=== PATIENT | female | born 1945 | race Caucasian/White ===

== ENCOUNTER → 2017-03-27 | Outpatient (CLI) | payer MEDICARE | END | disposition home or self-care (01) | LOC: CFH 10:15 | PROVIDERS: ATTEND Obstetrics & Gynecology | DX: Z12.31 Encounter for screening mammogram for malignant neoplasm of breast (principal); M85.88 Other specified disorders of bone density and structure, other site; Z78.0 Asymptomatic menopausal state | CPT/HCPCS: 77080; G0202 ==

== ENCOUNTER → 2017-12-31 | Outpatient (CLI) | payer MEDICARE | END | disposition home or self-care (01) | LOC: CVU 12:46 | PROVIDERS: ATTEND Internal Medicine Cardiovascular Disease | DX: I34.0 Nonrheumatic mitral (valve) insufficiency (principal); I34.1 Nonrheumatic mitral (valve) prolapse; I10 Essential (primary) hypertension; E78.5 Hyperlipidemia, unspecified | CPT/HCPCS: 93306 ==

== ENCOUNTER → 2018-08-04 | Outpatient (CLI) | payer MEDICARE | END | disposition home or self-care (01) | LOC: CVU 12:56 | PROVIDERS: ATTEND Internal Medicine Cardiovascular Disease | DX: I65.23 Occlusion and stenosis of bilateral carotid arteries (principal); C50.919 Malignant neoplasm of unspecified site of unspecified female breast | CPT/HCPCS: 93880 ==

== ENCOUNTER 2018-09-03 11:43 | Observation (INO) | payer MEDICARE ==
[~2018-09-03] VITALS: Ht 170.2 cm; Wt 68.4 kg
[2018-09-03] MEDS: FENTANYL PF 100 MCG/2ML IV PRN ×4 (10:32→11:00)
[~2018-09-03 11:43] MED LIST: ACETAMINOPHEN 500 MG TABLET PO ONE; ATOR20TA37 PO; BACITRACIN 50,000 UNIT ONE; BUPIVACAINE/PF-EPI 0.5% 1:200K ONE; CEFAZOLIN 1,000 MG ONE; COLE1TAB5 PO; DEXAMETHASONE 4 MG/ML, 1ML ONE; DIPHENHYDRAMINE 50 MG/ML, 1ML IVPush PRN; FENTANYL PF 100 MCG/2ML ONE; FENTANYL PF 250 MCG/5ML ONE; GABAPENTIN 300 MG CAPSULE PO ONE; GENTAMICIN 80 MG/2 ML IM ONE; GLYCOPYRROLATE 0.2MG/1ML, 5ML ONE; HALOPERIDOL 5 MG/ML IV PRN; HYDROmorphone 2 MG/ML, 1ML IVPush PRN; ISOSULFAN BLUE 10 MG/ML, 5ML IV ONE; LABETALOL 5MG/ML, 20ML IV PRN; LACTATED RINGERS 1,000 ML IV SCH; LEVO112T4 PO; MEPERIDINE/PF 25MG/0.5ML IVPush PRN; METOPROLOL 1 MG/ML, 5ML IV PRN; NEOSTIGMINE 1 MG/ML, 10ML ONE; ONDANSETRON 2MG/ML, 2ML ONE; OXYcodone 5 MG/5 ML ORAL.SOL UDC ONE; OXYcodone 5 MG/5 ML ORAL.SOL UDC PO PRN; PROCHLORPERAZINE 5 MG/ML, 2ML IV PRN; PROMETHAZINE 25 MG/ML, 1ML IV PRN; PROPOFOL 10 MG/ML, 20ML ONE; ROCURONIUM 10 MG/ML,10ML ONE; SUCCINYLCHOLINE 20 MG/ML, 10ML ONE; hydrALAzine 20 MG/ML, 1ML IV PRN
[2018-09-03 11:53] VITALS: BP 126/49
[2018-09-03] MEDS ORDERED: ONDANSETRON 2MG/ML, 2ML IVPush PRN ×2 (13:00)
[2018-09-03] MEDS ORDERED: HYDROcodone/APAP 5/325 TABLET PO PRN (13:00)
[2018-09-03] MEDS ORDERED: morphine SULFATE/PF 0.5 MG/ML, 10ML IV PRN (13:00)
[2018-09-03] MEDS ORDERED: morphine SULFATE 10 MG/ML, 1ML IVPush PRN (13:00)
[2018-09-03] MEDS ORDERED: LABETALOL 5MG/ML, 20ML IVPush PRN ×2 (13:00)
[2018-09-03] MEDS: LACTATED RINGERS 1,000 ML IV SCH ×2 (13:03→21:00)
[2018-09-03 14:40] VITALS: BP 125/49
[2018-09-03] MEDS: CEFAZOLIN PMX 2GM/50ML 50 ML IVPB SCH ×2 (15:48→23:34)
[2018-09-03] MEDS: HYDROcodone/APAP 5/325 TABLET PO PRN ×2 (16:45→23:52)
[2018-09-03 19:23] VITALS: BP 113/64
[2018-09-03] MEDS: COLESTIPOL 1 GM TABLET PO SCH (19:55)
[2018-09-03] MEDS: FAMOTIDINE 20 MG TABLET PO SCH (19:55)
[2018-09-03] MEDS ORDERED: ATORVASTATIN 20 MG TABLET PO SCH (21:00)
[2018-09-03] MEDS ORDERED: FAMOTIDINE 20 MG TABLET PO SCH (21:00)
[2018-09-04 00:10] VITALS: BP 121/69
[2018-09-04 01:16] VITALS: BP 114/42
[2018-09-04] MEDS: LACTATED RINGERS 1,000 ML IV SCH (05:00)
[2018-09-04] MEDS ORDERED: LEVOTHYROXINE 112 MCG TABLET PO SCH (06:00)
[2018-09-04] MEDS: CEFAZOLIN PMX 2GM/50ML 50 ML IVPB SCH (07:53)
[2018-09-04] MEDS: FAMOTIDINE 20 MG TABLET PO SCH (07:53)
[2018-09-04] MEDS: COLESTIPOL 1 GM TABLET PO SCH (07:53)
[2018-09-04 08:00] VITALS: BP 112/52
== END 2018-09-04 13:10 | disposition home or self-care (01) ==
LOC: OUT 11:43 → 4NOR 11:44 → DCLOUNGE 09-04 12:47
PROVIDERS: ADMIT Surgery; ATTEND Surgery
DX: D05.11 Intraductal carcinoma in situ of right breast (principal); M19.90 Unspecified osteoarthritis, unspecified site; G43.909 Migraine, unspecified, not intractable, without status migrainosus; I65.23 Occlusion and stenosis of bilateral carotid arteries; Z85.3 Personal history of malignant neoplasm of breast; Z90.11 Acquired absence of right breast and nipple; Z90.12 Acquired absence of left breast and nipple
CPT/HCPCS: 19303; 38525; 38792; 88307; 88333; 88341; 88342; 88360; 88361; 96365; 96366; C1729; C1762; G0378; J0330; J0690; J1100; J1580; J2405; J2704; J2710; J3010; J3490; J7120

== ENCOUNTER → 2018-10-08 | Outpatient (CLI) | payer MEDICARE ==
[~2018-10-08] MED LIST changes: -ACETAMINOPHEN 500 MG TABLET PO ONE; -BACITRACIN 50,000 UNIT ONE; -BUPIVACAINE/PF-EPI 0.5% 1:200K ONE; -CEFAZOLIN 1,000 MG ONE; -DEXAMETHASONE 4 MG/ML, 1ML ONE; -DIPHENHYDRAMINE 50 MG/ML, 1ML IVPush PRN; -FENTANYL PF 100 MCG/2ML ONE; -FENTANYL PF 250 MCG/5ML ONE; -GABAPENTIN 300 MG CAPSULE PO ONE; -GENTAMICIN 80 MG/2 ML IM ONE; -GLYCOPYRROLATE 0.2MG/1ML, 5ML ONE; -HALOPERIDOL 5 MG/ML IV PRN; -HYDROmorphone 2 MG/ML, 1ML IVPush PRN; -ISOSULFAN BLUE 10 MG/ML, 5ML IV ONE; -LABETALOL 5MG/ML, 20ML IV PRN; -LACTATED RINGERS 1,000 ML IV SCH; -MEPERIDINE/PF 25MG/0.5ML IVPush PRN; -METOPROLOL 1 MG/ML, 5ML IV PRN; -NEOSTIGMINE 1 MG/ML, 10ML ONE; +OMNIPAQUE 350 MG/ML, 100ML BOTTLE ONE; -ONDANSETRON 2MG/ML, 2ML ONE; -OXYcodone 5 MG/5 ML ORAL.SOL UDC ONE; -OXYcodone 5 MG/5 ML ORAL.SOL UDC PO PRN; -PROCHLORPERAZINE 5 MG/ML, 2ML IV PRN; -PROMETHAZINE 25 MG/ML, 1ML IV PRN; -PROPOFOL 10 MG/ML, 20ML ONE; -ROCURONIUM 10 MG/ML,10ML ONE; -SUCCINYLCHOLINE 20 MG/ML, 10ML ONE; -hydrALAzine 20 MG/ML, 1ML IV PRN
== END | disposition home or self-care (01) ==
LOC: PETCFH 10:28
PROVIDERS: ATTEND Internal Medicine Hematology & Oncology
DX: Z51.11 Encounter for antineoplastic chemotherapy (principal); C50.111 Malignant neoplasm of central portion of right female breast; M48.56XA Collapsed vertebra, not elsewhere classified, lumbar region, initial encounter for fracture; Z90.710 Acquired absence of both cervix and uterus
CPT/HCPCS: 71260; 74177; 78306; A9503; Q9967

== ENCOUNTER 2019-01-28 13:31 | Day surgery (SDC) | payer MEDICARE ==
[~2019-01-28] VITALS: Ht 170.2 cm; Wt 69.1 kg
[~2019-01-28 13:31] MED LIST changes: +ACET-1600 PO; +BACITRACIN 50,000 UNIT ONE; +BUPIVACAINE/PF-EPI 0.5% 1:200K ONE; +CALC1CAP8 PO; +CEFAZOLIN 1,000 MG ONE; +EPINEPHRINE 1 MG/ML, 1ML ONE; +GENTAMICIN 80 MG/2 ML ONE; +IBUP-1484 PO; +LACT1CAP43 PO; +LIDOCAINE-MPF 2% ,5ML ONE; -OMNIPAQUE 350 MG/ML, 100ML BOTTLE ONE; +SODIUM BICARBONATE 1 MEQ/ML, 50ML VIAL ONE
[2019-01-28 14:16] VITALS: BP 155/88
[2019-01-28] MEDS ORDERED: LACTATED RINGERS 1,000 ML IV SCH (14:20)
[2019-01-28] MEDS ORDERED: FENTANYL PF 250 MCG/5ML ONE (15:36)
[2019-01-28] MEDS ORDERED: MIDAZOLAM 1 MG/ML, 2ML ONE (15:36)
[2019-01-28] MEDS ORDERED: hydrALAzine 20 MG/ML, 1ML IV PRN (16:30)
[2019-01-28] MEDS ORDERED: HYDROmorphone 2 MG/ML, 1ML IVPush PRN (16:30)
[2019-01-28] MEDS ORDERED: ACETAMINOPHEN 325 MG TABLET PO PRN (16:30)
[2019-01-28] MEDS ORDERED: KETOROLAC 30 MG/1 ML IV PRN (16:30)
[2019-01-28] MEDS ORDERED: LABETALOL 5MG/ML, 20ML IV PRN (16:30)
[2019-01-28] MEDS ORDERED: ALBUTEROL SULFATE 2.5 MG/3 ML NPPB PRN (16:30)
[2019-01-28] MEDS ORDERED: MEPERIDINE/PF 25MG/0.5ML IVPush PRN (16:30)
[2019-01-28] MEDS ORDERED: DIAZEPAM 5 MG/ML, 2ML IVPush PRN (16:30)
[2019-01-28] MEDS ORDERED: PROMETHAZINE 25 MG/ML, 1ML IV PRN (16:30)
[2019-01-28] MEDS ORDERED: FENTANYL PF 100 MCG/2ML IV PRN (16:30)
[2019-01-28] MEDS ORDERED: PROPOFOL 10 MG/ML, 20ML ONE (16:44)
[2019-01-28] MEDS ORDERED: ONDANSETRON 2MG/ML, 2ML ONE (16:44)
[2019-01-28] MEDS ORDERED: CEFAZOLIN 1,000 MG ONE (16:44)
[2019-01-28] MEDS ORDERED: DEXAMETHASONE 4 MG/ML, 1ML ONE (16:44)
[2019-01-28] MEDS ORDERED: OXYcodone 5 MG/5 ML ORAL.SOL UDC ONE (17:02)
[2019-01-28] MEDS ORDERED: FENTANYL PF 100 MCG/2ML ONE (17:02)
[2019-01-28] MEDS: OXYcodone 5 MG/5 ML ORAL.SOL UDC PO PRN (17:08)
[2019-01-28] MEDS ORDERED: KETOROLAC 30 MG/1 ML ONE (17:11)
== END 2019-01-28 20:03 | disposition home or self-care (01) ==
LOC: OR 13:31 → 4NOR 17:55 → OR 20:03
PROVIDERS: ATTEND Plastic Surgery
DX: N64.89 Other specified disorders of breast (principal); E89.0 Postprocedural hypothyroidism; Z79.890 Hormone replacement therapy; Z79.899 Other long term (current) drug therapy; Z85.3 Personal history of malignant neoplasm of breast; Z90.13 Acquired absence of bilateral breasts and nipples; Z96.652 Presence of left artificial knee joint; Z90.710 Acquired absence of both cervix and uterus; Z98.890 Other specified postprocedural states; Z80.3 Family history of malignant neoplasm of breast; Z82.49 Family history of ischemic heart disease and other diseases of the circulatory system
CPT/HCPCS: 11970; 19380; 20926; C1789; J0171; J0690; J1100; J1580; J1885; J2250; J2405; J2704; J3010; J7120; G0378

== ENCOUNTER 2019-11-29 14:43 | Outpatient (CLI) | payer MEDICARE ==
[~2019-11-29 14:43] MED LIST changes: -BACITRACIN 50,000 UNIT ONE; -BUPIVACAINE/PF-EPI 0.5% 1:200K ONE; -CEFAZOLIN 1,000 MG ONE; -EPINEPHRINE 1 MG/ML, 1ML ONE; -GENTAMICIN 80 MG/2 ML ONE; -IBUP-1484 PO; +IBUP-1902 PO; -LIDOCAINE-MPF 2% ,5ML ONE; -SODIUM BICARBONATE 1 MEQ/ML, 50ML VIAL ONE
== END 2019-11-29 23:59 | disposition home or self-care (01) ==
LOC: CVU 14:43
PROVIDERS: ATTEND Internal Medicine Cardiovascular Disease
DX: I08.1 Rheumatic disorders of both mitral and tricuspid valves (principal)
CPT/HCPCS: 93306; 93356

== ENCOUNTER 2020-10-26 11:31 | Outpatient (CLI) | payer MEDICARE | END 2020-10-26 23:59 | disposition home or self-care (01) | LOC: CFH 11:31 | PROVIDERS: ATTEND Obstetrics & Gynecology Female Pelvic Medicine and Reconstructive Surgery | DX: M81.0 Age-related osteoporosis without current pathological fracture (principal); M89.9 Disorder of bone, unspecified | CPT/HCPCS: 77080 ==